=== PATIENT | female | born 1955 | race Caucasian/White ===

== ENCOUNTER 2018-02-27 17:50 | Inpatient (IN) ==
--- NOTE | 2018-02-27 19:08 | ED ---
HPI General Chief Complaint: Recheck/Abnormal Lab/Rx Stated Complaint: abnormal results Time Seen by Provider: 02/27/18 17:59 Source: patient and family Mode of arrival: ambulatory Limitations: no limitations History of Present Illness HPI narrative: Patient is a 62-year-old female presenting to the emergency department after being notified that urine culture resulted in the antibiotics that she is currently on are not susceptible. Pt reports that she has had decreased urinary output today. She is currently on Clindamycin and bactrim ds. She denies any other urinary symptoms. Patient reports that this was initially discovered during preop testing because she has a broken arm that will require surgery. Pt reports discoloration and pain around her ankles that started today. The pain is a 9/10, burning in nature, constant. Pt is O2 dependant, she did not wear oxygen to the emergency department and arrived with low O2 sats. complaint: Reports other (positive urine culture) Initial visit (ago): day(s) Returns today for: called because of abnormal lab/test Symptoms since prior visit: Reports no new symptoms Context: Reports called for abnormal lab result and called for positive culture result Associated symptoms: Reports none Treatments prior to arrival: Reports given antibiotics on Related Data Home Medications Medication Instructions Recorded Confirmed alprazolam [Xanax] 2 mg PO BID 02/13/18 02/27/18 prednisone 5 mg PO BID 02/13/18 02/27/18 albuterol sulfate [Ventolin HFA] 2 puff INHALATION Q4-6H PRN 02/21/18 02/27/18 mbzoxkcgurcn-fcj-sfiv-FA-vit K 1 mg PO DAILY 02/22/18 02/27/18 [Adults Multivitamin] omeprazole magnesium [Prilosec OTC] 20 mg PO DAILY 02/23/18 02/27/18 Previous Rx's Medication Instructions Recorded clindamycin HCl 300 mg PO TID 10 Days #60 cap 02/24/18 sulfamethoxazole-trimethoprim 1 tab PO BID 10 Days #20 tab 02/24/18 [Bactrim DS] Allergies Allergy/AdvReac Type Severity Reaction Status Date / Time ciprofloxacin Allergy Severe Shortness Verified 02/27/18 17:54 of Breath penicillin G Allergy Severe SOB Verified 02/27/18 17:54 Review of Systems ROS: all other systems reviewed are negative [facility] Medical History Medical History COPD (chronic obstructive pulmonary disease) (Acute) GERD (gastroesophageal reflux disease) (Acute) History of CVA (cerebrovascular accident) (Acute) History of MRSA infection (Acute ~01/25/18) History of chemotherapy (Acute) Hx of hepatitis C (Acute) Kidney stones (Acute) Lymphoma (Acute) Right arm pain (Acute) Urinary retention (Acute) Surgical History Surgical History Hx of biopsy (Acute) Hx of cystoscopy (Acute) Hx of tubal ligation (Acute) Previous back surgery (Acute) Social History Social History Substance History: No History of Abuse Second Hand Smoke Exposure: Yes Smoking Status: Current every day smoker Tobacco Type: Cigarettes How Often Do You Have a Drink Containing Alcohol: Never Recent Travel in [facility] within the Last 8 Weeks: No Recent Out of Country Travel within the Last 8 Weeks: No Immunization History Tetanus Immunization: <5 Years Exam Narrative Exam Narrative: GENERAL: Well-developed, well-nourished, alert female. Presenting in no acute distress. SKIN: Focused skin assessment warm/dry. HEAD: Atraumatic. Normocephalic. EYES: Pupils equal and round. No scleral icterus. No injection or drainage. ENT: No nasal bleeding or discharge. Mucous membranes pink and moist. NECK: Trachea midline. No JVD. CARDIOVASCULAR: Regular rate and rhythm. No murmur appreciated. RESPIRATORY: No accessory muscle use. Clear to auscultation. Breath sounds equal bilaterally. GASTROINTESTINAL: Abdomen soft, non-tender, nondistended. Hepatic and splenic margins not palpable. MUSCULOSKELETAL: No obvious deformities. No clubbing. No cyanosis. No edema. Right forearm in splint. NEUROLOGICAL: Awake and alert. No obvious cranial nerve deficits. Motor grossly within normal limits. Normal speech. PSYCHIATRIC: Appropriate mood and affect; insight and judgment normal. Course Initial Documented Vital Signs Temperature 97.7 F 02/27/18 17:53 Pulse Rate 88 02/27/18 17:53 Respiratory Rate 22 18 17:53 Blood Pressure 110/55 L 02/27/18 17:53 Pulse Oximetry 83 L 02/27/18 17:53 Last Documented Vital Signs Temperature 98.2 F 02/28/18 03:43 Pulse Rate 74 02/28/18 03:43 Respiratory Rate 18 02/28/18 03:43 Blood Pressure 115/63 02/28/18 03:43 Pulse Oximetry 94 L 02/28/18 03:43 Medical Decision Making BOGDAN Attestation BOGDAN supervised visit: Yes Attestation: I, Dr. Platt, have reviewed the advance practice practitioner's documentation and am in agreement Discussed with advance practitioner patient has UTI which is resistant to oral medication will need IV medication. MDM Narrative Medical decision making narrative: Pt presented due to positive urine cultures requiring IV abx. Pt's VSS as long as she is on O2, she is supposed to be on this continuously but has been non-compliant. Labs ordered and pending. CBC and chemistry reviewed. Discussed with Dr. Wells infectious disease. She stated that there is no 3rd generation oral cephalosporin to cover pseudomonas. At this time we will repeat a urinalysis/culture and start patient on IV abx. [facility] paged for admit. Repeated UA with reflex culture pending. Dr. Concepcion discussed with Dr. Meeks who accepted admit. Pt was reassessed and c/o pain in the arm with the distal radius and ulna fracture. Pt was givenpercocet 5/325mg PO x 1 dose. Admit orders placed. Medical Screen Exam Complete: Yes Emergency Medical Condition: Yes Differential Diagnosis Differential Diagnosis: UTI versus metabolic normality versus pyelonephritis versus other Medical Records Medical records reviewed: Yes I reviewed the patient's medical records. Patient has positive urine culture, Pseudomonas aeruginosa >100,000. Susceptible to ceftazidime. Lab Data Lab results reviewed: Yes I reviewed the patient's lab results. Result diagrams: 02/27/18 18:55 02/27/18 18:55 Lab Results 02/27/18 02/27/18 02/27/18 Range/Units 18:55 18:55 18:55 WBC 3.2 L (4.0-11.0) th/mm3 RBC 4.36 (4.00-5.30) mil/mm3 Hgb 12.8 (11.6-15.3) gm/dL Hct 38.3 (35.0-46.0) % MCV 88.0 (80.0-100.0) fL MCH 29.4 (27.0-34.0) pg MCHC 33.4 (32.0-36.0) % RDW 14.5 (11.6-17.2) % Plt Count 114 L D (150-450) th/mm3 MPV 7.5 (7.0-11.0) fL Neut % (Auto) 74.7 H (16.0-70.0) % Lymph % (Auto) 17.4 (9.0-44.0) % [place] % (Auto) 5.1 (0.0-8.0) % Eos % (Auto) 2.6 (0.0-4.0) % Baso % (Auto) 0.2 (0.0-2.0) % Neut # (Auto) 2.4 (1.8-7.7) th/mm3 Lymph # (Auto) 0.6 L (1.0-4.8) th/mm3 [place] # (Auto) 0.2 (0.0-0.9) th/mm3 Eos # (Auto) 0.1 (0.0-0.4) th/mm3 Baso # (Auto) 0.0 (0.0-0.2) th/mm3 WBC Differential . Differential Comment Auto diff final PT 11.4 (9.8-11.6) sec INR 1.1 Ratio APTT 29.9 (23.4-31.7) sec Sodium 140 (136-145) meq/L Potassium 4.4 (3.5-5.1) meq/L Chloride 104 (98-107) meq/L Carbon Dioxide 30.6 (21.0-32.0) meq/L Anion Gap 5 (5-15) meq/L BUN 17 (7-18) mg/dL Creatinine 0.77 (0.50-1.00) mg/dL Estimated GFR 76 L (>89) mL/min Random Glucose 131 H (74-106) mg/dL Calcium 8.0 L (8.5-10.1) mg/dL Total Bilirubin 0.3 (0.2-1.0) mg/dL AST 22 (15-37) U/L ALT 20 (10-53) U/L Alkaline Phosphatase 109 (45-117) U/L Total Protein 6.0 L (6.4-8.2) g/dL Albumin 3.4 (3.4-5.0) g/dL Urine Color (Yellw/Straw) Urine Clarity (Clear) Urine pH (5.0-8.5) Ur Specific [place] (1.002-1.035) Urine Protein (Neg-Trace) mg/dL Urine Glucose (UA) (Negative) mg/dL Urine Ketones (Negative) mg/dL Urine Occult Blood (Negative) Urine Nitrate (Negative) Urine Bilirubin (Negative) Urine Urobilinogen (Less than 2) mg/dL Ur Leukocyte Esterase (Negative) Urine RBC (0-3) /hpf Urine WBC (0-5) /hpf Ur Squamous Epith Cells (0-5) /hpf Urine Mucus (Occasional) /lpf Micro UA Comment Ur Microscopic Review Urine Culture Comments 02/27/18 Range/Units 20:44 WBC (4.0-11.0) th/mm3 RBC (4.00-5.30) mil/mm3 Hgb (11.6-15.3) gm/dL Hct (35.0-46.0) % MCV (80.0-100.0) fL MCH (27.0-34.0) pg MCHC (32.0-36.0) % RDW (11.6-17.2) % Plt Count (150-450) th/mm3 MPV (7.0-11.0) fL Neut % (Auto) (16.0-70.0) % Lymph % (Auto) (9.0-44.0) % [place] % (Auto) (0.0-8.0) % Eos % (Auto) (0.0-4.0) % Baso % (Auto) (0.0-2.0) % Neut # (Auto) (1.8-7.7) th/mm3 Lymph # (Auto) (1.0-4.8) th/mm3 [place] # (Auto) (0.0-0.9) th/mm3 Eos # (Auto) (0.0-0.4) th/mm3 Baso # (Auto) (0.0-0.2) th/mm3 WBC Differential Differential Comment PT (9.8-11.6) sec INR Ratio APTT (23.4-31.7) sec Sodium (136-145) meq/L Potassium (3.5-5.1) meq/L Chloride (98-107) meq/L Carbon Dioxide (21.0-32.0) meq/L Anion Gap (5-15) meq/L BUN (7-18) mg/dL Creatinine (0.50-1.00) mg/dL Estimated GFR (>89) mL/min Random Glucose (74-106) mg/dL Calcium (8.5-10.1) mg/dL Total Bilirubin (0.2-1.0) mg/dL AST (15-37) U/L ALT (10-53) U/L Alkaline Phosphatase (45-117) U/L Total Protein (6.4-8.2) g/dL Albumin (3.4-5.0) g/dL Urine Color Yellow (Yellw/Straw) Urine Clarity Clear (Clear) Urine pH 5.0 (5.0-8.5) Ur Specific [place] 1.021 (1.002-1.035) Urine Protein Negative (Neg-Trace) mg/dL Urine Glucose (UA) Negative (Negative) mg/dL Urine Ketones Negative (Negative) mg/dL Urine Occult Blood Negative (Negative) Urine Nitrate Negative (Negative) Urine Bilirubin Negative (Negative) Urine Urobilinogen 4 or greater (Less than 2) mg/dL Ur Leukocyte Esterase Trace H (Negative) Urine RBC Less than 1 (0-3) /hpf Urine WBC 8 H (0-5) /hpf Ur Squamous Epith Cells <1 (0-5) /hpf Urine Mucus Few H (Occasional) /lpf Micro UA Comment Cath-culture ind Ur Microscopic Review Not Reportable Urine Culture Comments Cath-cult indicated Imaging Data Radiologist's impression: Chest X-Ray 02/28/18 00:00 CONCLUSION: The lungs are clear. Discharge Plan Discharge Disposition Patient Disposition: ED Admit(ED Internal Use Only) Discharge Condition Condition: Good Discharge Order Discharge Orders: ED Use Only Admit Order (Routine); Ordered 02/27/18 Ordered By: Lora Schuster Discharge Details Diagnosis: Acute UTI Physicians Team ED Provider: Giacomo López ED Midlevel Provider: Lora Schuster Primary Care Provider: Phillip Wood Attending Provider: Vikas Riggins Other Providers: oJsep Mueller ; Savannah Houston Status ED Status: Left Department Discharge Information Discharge Date/Time: 02/27/18 23:59
[2018-02-27 19:11] LABS: Baso % (Auto) 0.2 % (0.0-2.0); Eos # (Auto) 0.1 th/mm3 (0.0-0.4); Eos % (Auto) 2.6 % (0.0-4.0); Hematocrit 38.3 % (35.0-46.0); Hemoglobin 12.8 gm/dL (11.6-15.3); Lymph # (Auto) 0.6 th/mm3 (1.0-4.8); Lymph % (Auto) 17.4 % (9.0-44.0); Mean Corpuscular HGB Conc 33.4 % (32.0-36.0); Mean Corpuscular Hemoglobin 29.4 pg (27.0-34.0); Mean Platelet Volume 7.5 fL (7.0-11.0); Mono # (Auto) 0.2 th/mm3 (0.0-0.9); Mono % (Auto) 5.1 % (0.0-8.0); Neut # (Auto) 2.4 th/mm3 (1.8-7.7); Neut % (Auto) 74.7 % (16.0-70.0); Platelet Count 114 th/mm3 (150-450); Red Blood Count 4.36 mil/mm3 (4.00-5.30); Red Cell Distribution Width 14.5 % (11.6-17.2); White Blood Count 3.2 th/mm3 (4.0-11.0)
[2018-02-27 19:25] LABS: Activated Partial Thrombo Time 29.9 sec (23.4-31.7); INR 1.1 Ratio; Prothrombin Time 11.4 sec (9.8-11.6)
[2018-02-27 19:28] LABS: Albumin 3.4 g/dL (3.4-5.0); Anion Gap 5 meq/L (5-15); Aspartate Aminotransferase 22 U/L (15-37); Blood Urea Nitrogen 17 mg/dL (7-18); Carbon Dioxide 30.6 meq/L (21.0-32.0); Chloride 104 meq/L (98-107); Glomerular Filtration Rate 76 mL/min (>89); Glucose,Random 131 mg/dL (74-106); Potassium 4.4 meq/L (3.5-5.1); Sodium 140 meq/L (136-145)
[2018-02-27 19:29] LABS: Alanine Aminotransferase 20 U/L (10-53)
[2018-02-27 19:32] LABS: Alkaline Phosphatase 109 U/L (45-117)
[2018-02-27] MEDS ORDERED: MethylPREDNISolone Sod Succinate Inj 125 MG/2 ML Vial IV.PUSH ONE (20:28)
[2018-02-27] MEDS ORDERED: Tobramycin Consult Pharmacy OTHER PRN (21:01)
[2018-02-27] MEDS ORDERED: Bisacodyl 10 MG Supp RECTAL PRN (21:12)
[2018-02-27] MEDS ORDERED: Acetaminophen 325 MG Tablet PO PRN (21:12)
--- NOTE | 2018-02-27 21:14 | P.HPIM ---
History of Present Illness Primary Care Physician: Phillip Wood DO History of Present Illness: This is a 62-year-old female with a PMH of Narcolepsy, Lymphoma, COPD, O2 Dependent, Urinary Retention, Tobacco Abuse and recent Right Wrist Fracture who was called to come back to the ER for urine culture results from previous ER presentation. Pt w/ h/o urinary retention, s/p Clark placement and eval w/ Dr. Birch in the past, seen in ER on 01/25/18, urine cultures +MRSA UTI at that time, later seen in ER on 02/13/18 for Right Wrist Fx after falling out of bed, had splint placed and was referred to Dr. Marin for surgical intervention which is scheduled for this coming Wednesday. Presented to ER on 02/23/18, diagnosed w/ UTI and d/c'd home on Clinda/Bactrim. Was called by us today and told to come in to ER for +Pseudomonas from urine cultures 02/24/18. Pt does c/ o ongoing dysuria. Friend at bedside notes pt w/ Narcolepsy-at baseline, does fall asleep during exam. On arrival, BP 110/55, HR 88, O2 sat 83% on RA, Afebrile. CBC essentially at baseline. INR 1.1. Chemistry unremarkable. UA with trace LE, mild bacteriuria. S/p Rocephin in ER. - Diagnosis (1) UTI (urinary tract infection) (2) COPD (chronic obstructive pulmonary disease) (3) Hypoxia (4) Narcolepsy (5) Wrist fracture, right Review of Systems PAST FAMILY HISTORY: Reviewed. No h/o DM or CAD All other systems reviewed negative except as stated in HPI PMFSH - History History Provided By: Patient - Medical History Medical History: Medical History (Last Reviewed 02/27/18 @ 19:11 by KAVIN Floyd) COPD (chronic obstructive pulmonary disease) GERD (gastroesophageal reflux disease) History of CVA (cerebrovascular accident) History of MRSA infection Onset Date: ~01/25/18 History of chemotherapy Hx of hepatitis C Kidney stones Lymphoma Right arm pain Urinary retention - Surgical History Surgical History: Surgical History (Last Reviewed 02/27/18 @ 19:11 by KAVIN Floyd) Hx of biopsy Hx of cystoscopy Hx of tubal ligation Previous back surgery - Tobacco History Second Hand Smoke Exposure: Yes Tobacco Use In Past 30 Days: Yes Smoking Status: Current every day smoker Tobacco Type: Cigarettes - Alcohol History How Often Do You Have a Drink Containing Alcohol: Never - Substance Use History Substance History: No History of Abuse - Travel History Recent Travel in the [place] Within the Last 8 Weeks: No Recent Travel Out of the Country Within the Last 8 Weeks: No - Immunization History Tetanus Immunization: <5 Years Medications and Allergies Active Medications: Active Medications Acetaminophen (Tylenol) 650 mg PO Q4H PRN PRN Reason: Temp > 100.4 Al Hydroxide/Mg Hydroxide (Milk Of Magnesia Liq) 30 ml PO Q12H PRN PRN Reason: Mild Constipation Albuterol (Duoneb Neb (Prn)) 1 ampul NEB Q4HR NEB PRN PRN Reason: SOB/WHEEZING Bisacodyl (Dulcolax Supp) 10 mg RECTAL DAILY PRN PRN Reason: SEVERE CONSITIPATION Tobramycin Sulfate / Sodium (Chloride) 100 mls @ 100 mls/hr IV.SIG Q24H ADAIR Lactulose (Lactulose Liq) 30 ml PO DAILY PRN PRN Reason: SEVERE CONSITIPATION Methylprednisolone Sodium Succinate (Solumedrol Inj) 40 mg IV.PUSH Q6H ADAIR Non-Formulary Medication (Alprazolam [Xanax]) 2 mg PO BID ADAIR Non-Formulary Medication (Ofiortbvtqos-Quw-Smhr-Fa-Vit K [Adults Multivitamin]) 1 mg PO DAILY ADAIR Non-Formulary Medication (Omeprazole Magnesium [Prilosec Otc]) 20 mg PO DAILY ADAIR Ondansetron HCl (Zofran Inj) 4 mg IV.PUSH Q6H PRN PRN Reason: NAUSEA OR VOMITING Pharmacy Profile Note (Tobramycin Consult Pharmacy) 1 each OTHER UNSCH PRN PRN Reason: Pharmacy to dose Senna/Docusate Sodium (Alma-Colace) 1 tab PO BID ADAIR Sennosides (Senokot) 17.2 mg PO Q12H PRN PRN Reason: Moderate Constipation Sodium Chloride (Ns Flush) 2 ml IV.FLUSH PRN PRN PRN Reason: FLUSH AFTER USING IV ACCESS Last Admin: 02/27/18 18:52 Dose: 2 ml Sodium Chloride (Ns Flush) 2 ml IV.FLUSH BID ADAIR Sodium Chloride (Ns Flush) 2 ml IV.FLUSH PRN PRN PRN Reason: FLUSH AFTER USING IV ACCESS Allergies Allergy/AdvReac Type Severity Reaction Status Date / Time ciprofloxacin Allergy Severe Shortness Verified 02/27/18 17:54 of Breath penicillin G Allergy Severe SOB Verified 02/27/18 17:54 Home Medications Medication Instructions Recorded Confirmed Type alprazolam [Xanax] 2 mg PO BID 02/13/18 02/27/18 History prednisone 5 mg PO BID 02/13/18 02/27/18 History albuterol sulfate [Ventolin HFA] 2 puff INHALATION Q4-6H PRN 02/21/18 02/27/18 History mvdjghkhagsk-zps-dhhu-FA-vit K 1 mg PO DAILY 02/22/18 02/27/18 History [Adults Multivitamin] omeprazole magnesium [Prilosec OTC] 20 mg PO DAILY 02/23/18 02/27/18 History Exam Vital signs: Vital Signs 02/27/18 17:53 02/27/18 17:54 02/27/18 18:15 Temperature 97.7 F Pulse Rate 88 77 Respiratory Rate 22 20 Blood Pressure 110/55 L 134/80 Pulse Oximetry 83 L 93 L 94 L Intake & Output 02/27/18 02/27/18 02/28/18 06:59 18:59 06:59 Intake Total 100 / 100 Balance 100 / 100 Weight 59.874 kg Intake: IV 100 / 100 Rocephin Inj 1,000 MG In NS Inj 100 / 100 100 ML @ 200 mls/hr IV.SIG ONCE ONE Rx#:[id number] Narrative: PE: GENERAL: Thin, chronically ill appearing, cachectic middle-aged female in no acute distress. Falls asleep during exam. Smells strongly of tobacco. Friend at baseline. SKIN: Focused skin assessment warm and dry. HEENT: PERRLA, EOMI. No scleral icterus or conjunctival pallor. No lid lag or facial droop. CARDIOVASCULAR: Regular rate and rhythm. No obvious murmurs to auscultation. No chest tenderness to palpation. RESPIRATORY: No obvious rhonchi or wheezing. Clear to auscultation. Breath sounds equal bilaterally. GASTROINTESTINAL: Abdomen soft, non-tender, nondistended. BS normal. MUSCULOSKELETAL: Extremities without clubbing, cyanosis, or edema. No obvious deformities. Right wrist splint. NEUROLOGICAL: Awake, alert and oriented x4. No focal neurologic deficits. Moving both upper and lower extremities spontaneously. PSYCHIATRIC: Appropriate mood and affect. Insight and judgment normal. Results - Labs CBC & Chem 7: 02/27/18 18:55 02/27/18 18:55 Labs: Short CBC 02/27/18 Range/Units 18:55 WBC 3.2 L (4.0-11.0) th/mm3 Hgb 12.8 (11.6-15.3) gm/dL Hct 38.3 (35.0-46.0) % Plt Count 114 L D (150-450) th/mm3 BMP 02/27/18 18:55 Sodium 140 Potassium 4.4 Chloride 104 Carbon Dioxide 30.6 BUN 17 Creatinine 0.77 Calcium 8.0 L Liver Function 02/27/18 Range/Units 18:55 Total Bilirubin 0.3 (0.2-1.0) mg/dL AST 22 (15-37) U/L ALT 20 (10-53) U/L Alkaline Phosphatase 109 (45-117) U/L Albumin 3.4 (3.4-5.0) g/dL Caprini VTE Risk Assessment Caprini VTE Risk Assessment: No/Low Risk (score <= 1) Caprini Risk Assessment Model: Point Value = 1 Point Value = 2 Point Value = 3 Point Value = 5 Age 41-60 Minor surgery BMI > 25 kg/m2 Swollen legs Varicose veins or History of unexplained or recurrent spontaneous Oral contraceptives or hormone replacement Sepsis (< 1 month) Serious lung disease, including pneumonia (< 1 month) Abnormal pulmonary function Acute myocardial infarction Congestive heart failure (< 1 month) History of inflammatory bowel disease Medical patient at bed rest Age 61-74 Arthroscopic surgery Major open surgery (> 45 min) Laparoscopic surgery (> 45 min) Malignancy Confined to bed (> 72 hours) Immobilizing plaster cast Central venous access Age >= 75 History of VTE Family history of VTE Factor V Leiden Prothrombin [id number] Lupus anticoagulant Anticardiolipin antibodies Elevated serum homocysteine Heparin-induced thrombocytopenia Other congenital or acquired thrombophilia Stroke (< 1 month) Elective arthroplasty Hip, pelvis, or leg fracture Acute spinal cord injury (< 1 month) Prophylaxis Regimen: Total Risk Factor Score Risk Level Prophylaxis Regimen 0-1 Low Early ambulation 2 Moderate Order ONE of the following: *Sequential Compression Device (SCD) *Heparin 5000 units SQ BID 3-4 Higher Order ONE of the following medications: *Heparin 5000 units SQ TID *Enoxaparin/Lovenox 40 mg SQ daily (WT < 150 kg, CrCl > 30 mL/min) *Enoxaparin/Lovenox 30 mg SQ daily (WT < 150 kg, CrCl > 10-29 mL/min) *Enoxaparin/Lovenox 30 mg SQ BID (WT < 150 kg, CrCl > 30 mL/min) AND/OR *Sequential Compression Device (SCD) 5 or more Highest Order ONE of the following medications: *Heparin 5000 units SQ TID (Preferred with Epidurals) *Enoxaparin/Lovenox 40 mg SQ daily (WT < 150 kg, CrCl > 30 mL/min) *Enoxaparin/Lovenox 30 mg SQ daily (WT < 150 kg, CrCl > 10-29 mL/min) *Enoxaparin/Lovenox 30 mg SQ BID (WT < 150 kg, CrCl > 30 mL/min) AND *Sequential Compression Device (SCD) Assessment and Plan - Assessment (1) UTI (urinary tract infection) Code(s): N39.0 - Urinary tract infection, site not specified Status: Acute (2) COPD (chronic obstructive pulmonary disease) Code(s): J44.9 - Chronic obstructive pulmonary disease, unspecified Status: Acute (3) Hypoxia Code(s): R09.02 - Hypoxemia Status: Acute (4) Narcolepsy Code(s): G47.419 - Narcolepsy without cataplexy Status: Acute (5) Wrist fracture, right Code(s): S62.101A - Fracture of unspecified carpal bone, right wrist, initial encounter for closed fracture Status: Acute - Plan A/P: 1. UTI: h/o MRSA UTI 01/25/18, urine culture 02/24/18 +Pseudomonas, s/p Rocephin IV in ER. Susceptibilities/JUANY reviewed, will switch to Primaxin and Tobra for double coverage of Pseudomonas in light of h/o recurrent/resistant UTIs. Consult ID for further recommendations regarding antibiotic regimen 2. Right Wrist Fx: follows w/ Dr. Houston, s/p fx 01/25/18, currently in splint, schedule for surgery on Wednesday, however will likely need to postpone due to active infection. Will consult for further eval. Check CXR to eval for underlying PNA. 3. COPD: Chronic Respiratory Failure w/ Acute Exacerbation, DuoNeb, Solu- Medrol, Symbicort, Mucinex. 4. Hypoxia: O2 Dependent, O2 sat 83% on RA upon arrival, monitor O2, continue NC. 5. Narcolepsy: at baseline, hold Xanax for tonight, monitor O2. 6. Tobacco Abuse: Pt counselled. NicoDerm prn. 7. DVT Prophylaxis: SCD/Teds 8. Social work for d/c planning as needed. 9. Case discussed w/ ER physician at length, labs/records/imaging reviewed by me.
[2018-02-27 21:16] LABS: Bilirubin,Urine Negative (Negative); Clarity,Urine Clear (Clear); Color,Urine Yellow (Yellw/Straw); Glucose,Urine (UA) Negative (Negative); Leukocyte Esterase,Urine Trace (Negative); Mucus,Urine Few /lpf (Occasional); Nitrite,Urine Negative (Negative); Specific Gravity,Urine 1.021 (1.002-1.035); Squamous Epithelial Cell,Urine <1 /hpf (0-5); Urobilinogen,Urine 4 or Greater mg/dL (Less than 2)
[2018-02-27] MEDS ORDERED: TOBRAMYCIN IV.SIG SCH ×2 (22:00)
[2018-02-27] MEDS ORDERED: Gentamicin Consult Pharmacy 1 EACH OTHER SCH (22:00)
[2018-02-27] MEDS ORDERED: SODIUM CHLOR 0.9% IV.SIG SCH ×2 (22:00)
[2018-02-28] MEDS ORDERED: TOBRAMYCIN IV.SIG SCH ×2
[2018-02-28] MEDS ORDERED: Gentamicin Inj 300 MG in Sodium Chlor 0.9% Inj 100 ML IV.SIG SCH ×2
[2018-02-28] MEDS ORDERED: SODIUM CHLOR 0.9% IV.SIG SCH ×2
--- NOTE | 2018-02-28 01:31 | XR ---
EXAM DATE: 02/28/2018 12:52 AM EST AGE/SEX: 62 years / Female INDICATIONS: Shortness of breath. CLINICAL DATA: This is the patient's initial encounter. Patient reports that signs and symptoms have been present for 1 day and indicates a pain score of 0/10. MEDICAL/SURGICAL HISTORY: Chronic obstructive pulmonary disease. Renal calculi. Lymphoma. Non e. COMPARISON: [facility] – [place], CHEST 1V SINGLE AP, 02/24/2018. . FINDINGS: Mild patient rotation towards the right. A single AP view of the chest demonstrates the lungs to be symmetrically aerated without evidence of mass, infiltrate or effusion. The cardiomediastinal contours are unremarkable. Mild curvature of the thoracolumbar spine convex towards the left. CONCLUSION: The lungs are clear. Electronically signed by: Kt Chaudhari MD Board Certified Radiologist 02/28/2018 1:30 AM EST
[2018-02-28] MEDS: MethylPREDNISolone Sod Succinate Inj 40 MG/ML Vial IV.PUSH SCH ×2 (03:01→09:30)
[2018-02-28 06:04] LABS: Hematocrit 41.5 % (35.0-46.0); Hemoglobin 13.5 gm/dL (11.6-15.3); Mean Corpuscular HGB Conc 32.6 % (32.0-36.0); Mean Corpuscular Hemoglobin 29.1 pg (27.0-34.0); Mean Corpuscular Volume 89.2 fL (80.0-100.0); Mean Platelet Volume 7.7 fL (7.0-11.0); Platelet Count 103 th/mm3 (150-450); Red Blood Count 4.65 mil/mm3 (4.00-5.30); Red Cell Distribution Width 14.5 % (11.6-17.2); White Blood Count 2.4 th/mm3 (4.0-11.0)
[2018-02-28 06:24] LABS: Alanine Aminotransferase 18 U/L (10-53); Alkaline Phosphatase 104 U/L (45-117)
[2018-02-28 06:27] LABS: Albumin 3.2 g/dL (3.4-5.0); Anion Gap 5 meq/L (5-15); Aspartate Aminotransferase 22 U/L (15-37); Blood Urea Nitrogen 14 mg/dL (7-18); Calcium 8.1 mg/dL (8.5-10.1); Carbon Dioxide 29.4 meq/L (21.0-32.0); Chloride 105 meq/L (98-107); Glomerular Filtration Rate Greater Than 89 mL/min (>89); Glucose,Random 131 mg/dL (74-106); Potassium 4.6 meq/L (3.5-5.1); Sodium 139 meq/L (136-145)
[2018-02-28 08:21] LABS: Lymphocytes 13 % (9-44); Monocytes 1 % (0-8); Ovalocytes 1+; Platelet Morphology Normal (Normal)
[2018-02-28] MEDS ORDERED: Pharmacy Ordered Lab Info OTHER ONE (09:00)
--- NOTE | 2018-02-28 09:01 | P.PNIM ---
Subjective Interval history: overnight felt feverish with occasional chills at times felt nausea overnight but no emesis + back pain endorsed last few days no foul smelling urine, + urinary frequency, no burning with urination endorsed. + rash on legs Physical Exam Vital signs: Last Vital Signs Temp 97.9 F 02/28/18 08:19 Pulse 66 02/28/18 08:19 Resp 17 02/28/18 08:19 BP 104/55 L 02/28/18 08:19 Pulse Ox 94 L 02/28/18 08:19 Intake & Output 02/26/18 02/27/18 02/28/18 03/01/18 06:59 06:59 06:59 06:59 Intake Total 407.5 / 407.5 Balance 407.5 / 407.5 Weight 56 kg gen: nad heent: eomi cvs: s1/s2 resp: CTA bilaterally gi: soft, non tender, non dsitended, no guarding urology: NOO CVA tenderness, no suprapubic tenderness skin: bilateral leg petechiae on legs ( present a little less than 1 week) ext: no edema, no calf tenderness Urinary Catheter Management Straight: Cath placed during this visit: no Results Labs CBC & Chem 7: 02/28/18 04:58 02/28/18 04:58 Imaging Imaging: Impressions Chest X-Ray 02/28/18 00:00 CONCLUSION: The lungs are clear. Assessment and Plan (1) UTI (urinary tract infection): Code(s): N39.0 - Urinary tract infection, site not specified Status: Acute (2) COPD (chronic obstructive pulmonary disease): Code(s): J44.9 - Chronic obstructive pulmonary disease, unspecified Status: Acute (3) Hypoxia: Code(s): R09.02 - Hypoxemia Status: Acute (4) Narcolepsy: Code(s): G47.419 - Narcolepsy without cataplexy Status: Acute (5) Wrist fracture, right: Code(s): S62.101A - Fracture of unspecified carpal bone, right wrist, initial encounter for closed fracture Status: Acute (6) Thrombocytopenia: Code(s): D69.6 - Thrombocytopenia, unspecified Status: Acute Plan Patient is a pleasant 62-year-old female with past medical history of reflux disease, and MRSA urinary tract infection (01/30) presenting to emergency department for positive urine culture with Pseudomonas Infectious disease: Pseudomonal urinary tract infection Infectious disease consulted recommendations appreciated via EMR Discontinue tobramycin and continue patient on imipenem Follow-up repeat urinary culture Tylenol PRN fever IV fluid hydration in the setting of sepsis resuscitation Hematology: Thrombocytopenia/leukopenia Suspect that these may be underlying infection with possible component of bone marrow suppression from Bactrim antibiotic. Discontinue antibiotic Bactrim and continue to monitor. Orthopedics: History right wrist fracture Orthopedics consulted and recommendations to be appreciated. At this time patient will not be having corrective surgery on right wrist fracture Pulmonary: COPD Patient does not appear to have change in symptoms from baseline. Will discontinue IV Solu-Medrol and resume patient's normal prednisone. DuoNeb therapy as needed Symbicort Supplemental oxygen with goal saturation 88-92% CODE STATUS: Full code DVT prophylaxis Disposition: Medical surgery unit Progress Note: Quality VTE Deep Vein Thrombosis/Pulmonary Embolism Present on Admission: No _ (1) UTI (urinary tract infection) Qualifiers: Encounter type: Hematuria presence: Indwelling urinary catheter type: Urinary tract infection type: (2) Narcolepsy Qualifiers: Narcolepsy type: (3) Wrist fracture, right Qualifiers: Encounter type: Fracture healing: Fracture type: (4) COPD (chronic obstructive pulmonary disease) Qualifiers: COPD type: Chronic bronchitis type: Emphysema type:
[2018-02-28] MEDS: Pantoprazole Sodium 20 MG DR Tablet PO SCH (09:30)
[2018-02-28] MEDS: Senna/Docusate Sodium 8.6/50 MG Tablet PO SCH ×2 (09:30→23:00)
[2018-02-28] MEDS: Multivitamin Hematinic Therapeutic Tablet PO SCH (09:31)
--- NOTE | 2018-02-28 12:49 | MB ---
cc: Josep Mueller MD DATE: 02/28/2018 REQUESTING PHYSICIAN: Dr. Dorothy Meeks. REASON: Pseudomonas urinary tract infection. HISTORY OF PRESENT ILLNESS: This is a 62-year-old white female who was seen in the emergency department on a recent visit on 02/23/2018. The patient had a urine culture taken on 02/26/2018 and she was discharged home. She was called back when the urine culture came back showing infection with Pseudomonas aeruginosa. She had been seen in the emergency department for medical clearance for right wrist surgery. The patient had fallen and sustained right wrist fracture. She had a prior urine infection with MRSA on 01/27/2018. The patient was called to come back to the emergency department for evaluation and treatment for the UTI. The Pseudomonas is resistant to ciprofloxacin. She was started on IV imipenem and tobramycin. The patient has no fever. Currently, she has no significant complaints. She tells me that her urine had a foul smell, but besides that she has not had any burning on urination. Her white blood cell count is 2.4 today, and the platelet count is low. On review of prior lab work her white count has been low and platelet count has been low. The patient was discharged home on clindamycin and Bactrim before she was called in to come back to the emergency department. PAST MEDICAL HISTORY: Narcolepsy, COPD, history of CVA, gastroesophageal reflux disease, lymphoma, history of chemotherapy kidney stones, hepatitis C, right arm fracture, tubal ligation, urinary retention. ALLERGIES: PENICILLIN AND CIPROFLOXACIN. MEDICATIONS: 1. Imipenem. 2. Xanax. 3. Methylprednisolone. 4. Protonix. 5. Alma-Colace. 6. Tobramycin. SOCIAL HISTORY: The patient smokes a pack of cigarettes a day. Denies alcohol. Denies illicit drugs. FAMILY HISTORY: Noncontributory. REVIEW OF SYSTEMS: All systems have been reviewed. Pertinent's mentioned in history of present illness. All systems have been reviewed and are negative. PHYSICAL EXAMINATION: GENERAL: This is a frail, thin female in no acute distress. She is awake and alert and oriented. VITAL SIGNS: Temperature 97.6, BP 105/54, respirations 18, heart rate 83. HEENT: Head is atraumatic. Extraocular muscles grossly intact. Pupils reactive to light. No icterus. Oropharynx moist mucosa without lesions. NECK: Supple without adenopathy. LUNGS: Slight rhonchi at both bases. Decreased breath sounds throughout. HEART: Regular S1 and S2. ABDOMEN: Bowel sounds present, flat. Soft, nontender. RECTAL: Not performed. ABDOMEN: Bowel sounds present. Soft, nontender. EXTREMITIES: No clubbing or cyanosis or edema. SKIN: No rash. NEUROLOGIC: No gross focal findings. PSYCHIATRIC: The patient is calm and cooperative. LABORATORY DATA: WBC 2.4, platelet count 103, hemoglobin 13.5, 84% neutrophils. Creatinine 0.58. Estimated GFR greater than 89, sodium 139. IMPRESSION: Urinary tract infection due to Pseudomonas aeruginosa. Repeat urine culture pending. RECOMMENDATIONS: 1. Continue imipenem. 2. Discontinue tobramycin. 3. Monitor repeat urine culture. Continue antibiotic treatment until resolution of the urine infection. Thank you for this consultation. I will monitor the patient's progress. MD MARTIN Carlson/mario alberto , 11:52 AM , 12:04 PM
[2018-03-01 07:15] LABS: Hepatitis A IgM Antibody Nonreactive (Nonreactive); Hepatitits B Surface Antigen Nonreactive (Nonreactive)
[2018-03-01] MEDS: Multivitamin Hematinic Therapeutic Tablet PO SCH (08:27)
[2018-03-01] MEDS: predniSONE 5 MG Tablet PO SCH (08:28)
[2018-03-01] MEDS: Pantoprazole Sodium 20 MG DR Tablet PO SCH (08:28)
[2018-03-01] MEDS: Senna/Docusate Sodium 8.6/50 MG Tablet PO SCH ×2 (08:33→21:50)
--- NOTE | 2018-03-01 14:04 | P.PNID ---
Subjective Remarks: Patient feels okay. No complaints. No fever But she felt a little chilly earlier. Repeat urine culture has no growth. 62-year-old white female who was seen in the emergency department on a recent visit on 02/23/2018. The patient had a urine culture taken on 02/26/2018 and she was discharged home. She was called back when the urine culture came back showing infection with Pseudomonas aeruginosa. She had been seen in the emergency department for medical clearance for right wrist surgery. The patient had fallen and sustained right wrist fracture. She had a prior urine infection with MRSA on 01/27/2018. The patient was called to come back to the emergency department for evaluation and treatment for the UTI. The Pseudomonas is resistant to ciprofloxacin. She was started on IV imipenem and tobramycin. Past Medical History: PAST MEDICAL HISTORY: Narcolepsy, COPD, history of CVA, gastroesophageal reflux disease, lymphoma, history of chemotherapy kidney stones, hepatitis C, right arm fracture, tubal ligation, urinary retention. Allergies/Adverse Reactions: Allergies ciprofloxacin Allergy (Severe, Verified 02/27/18 17:54) Shortness of Breath penicillin G Allergy (Severe, Verified 02/27/18 17:54) SOB Objective Vital Signs 02/28/18 16:08 02/28/18 17:04 02/28/18 19:50 Temperature 98.1 F Pulse Rate 92 H Respiratory Rate 18 20 18 Blood Pressure 114/60 Pulse Oximetry 97 02/28/18 20:00 03/01/18 00:00 03/01/18 03:52 Temperature 98.0 F 97.6 F 98.1 F Pulse Rate 73 87 77 Respiratory Rate 18 18 19 Blood Pressure 110/55 L 115/66 101/63 Pulse Oximetry 93 L 93 L 93 L 03/01/18 07:36 03/01/18 11:09 Temperature 97.7 F 97.4 F L Pulse Rate 80 91 H Respiratory Rate 16 16 Blood Pressure 121/68 114/65 Pulse Oximetry 96 91 L Intake & Output 02/28/18 03/01/18 03/01/18 18:59 06:59 18:59 Intake Total 200 / 200 300 / 300 100 / 100 Balance 200 / 200 300 / 300 100 / 100 Intake: IV 200 / 200 300 / 300 100 / 100 Ofirmev Inj 1,000 mg In 100 ml 100 / 100 @ 400 mls/hr IV.SIG ONCE ONE Rx #:[id number] Primaxin Inj 500 MG In NS Inj 200 / 200 200 / 200 100 / 100 100 ML @ 200 mls/hr IV.SIG Q6H [facility] Rx#:[id number] Other: # Voids 2 Date of Last Bowel Movement 02/28/18 03/01/18 02/27/18 20:44 Catheterized Urine Urine Culture - Final No growth in 48 hours Lab - Hematology Results 02/27/18 02/28/18 18:55 04:58 WBC 3.2 L 2.4 L RBC 4.36 4.65 Hgb 12.8 13.5 Hct 38.3 41.5 MCV 88.0 89.2 MCH 29.4 29.1 MCHC 33.4 32.6 RDW 14.5 14.5 Plt Count 114 L D 103 L MPV 7.5 7.7 Prelim Diff (Auto) Manual diff required Neut % (Auto) 74.7 H Lymph % (Auto) 17.4 [place] % (Auto) 5.1 Eos % (Auto) 2.6 Baso % (Auto) 0.2 Neut # (Auto) 2.4 Lymph # (Auto) 0.6 L [place] # (Auto) 0.2 Eos # (Auto) 0.1 Baso # (Auto) 0.0 WBC Differential . Manual diff final Seg Neuts % (Manual) 84 H Band Neuts % (Manual) 2 Lymphocytes % (Manual) 13 Monocytes % (Manual) 1 Abs Neuts (Manual) 2.1 Differential Comment Auto diff final . Platelet Estimate Low L Platelet Morphology Normal Ovalocytes 1+ H Lab - Chemistry Results 02/27/18 02/28/18 03/01/18 18:55 04:58 04:44 Sodium 140 139 Potassium 4.4 4.6 Chloride 104 105 Carbon Dioxide 30.6 29.4 Anion Gap 5 5 BUN 17 14 Creatinine 0.77 0.58 0.69 Estimated GFR 76 L Greater than 89 86 L Random Glucose 131 H 131 H Calcium 8.0 L 8.1 L Total Bilirubin 0.3 0.3 AST 22 22 ALT 20 18 Alkaline Phosphatase 109 104 Total Protein 6.0 L 6.0 L Albumin 3.4 3.2 L Imaging: ITS Impressions Chest X-Ray 02/28/18 00:00 CONCLUSION: The lungs are clear. Physical Exam: GENERAL: No acute distress. She is awake and alert and oriented. HEENT: Head is atraumatic. Extraocular muscles grossly intact. Pupils reactive to light. No icterus. Oropharynx:moist mucosa without lesions. NECK: Supple without adenopathy. LUNGS: Slight rhonchi at both bases. Lateral wheezing. HEART: Regular S1 and S2. ABDOMEN: Bowel sounds present. Soft, nontender. EXTREMITIES: No clubbing or cyanosis or edema. SKIN: No rash. NEUROLOGIC: No gross focal findings. PSYCHIATRIC: Calm and cooperative. Assessment and Plan - Plan IMPRESSION: Urinary tract infection due to Pseudomonas aeruginosa. Repeat urine is negative. RECOMMENDATIONS: Stop antibiotics. Okay to discharge from ID standpoint. I will sign off now.
--- NOTE | 2018-03-01 17:42 | P.PNIM ---
Subjective Interval history: 62-year-old female with oxygen dependent COPD admitted with drug resistant UTI for IV antibiotics Patient seen and examined, complaining of severe pain in left wrist, and some worsening shortness of breath, denies cough, denies chest pain no nausea vomiting Physical Exam Vital signs: Last Vital Signs Temp 97.2 F L 03/01/18 14:16 Pulse 84 03/01/18 14:16 Resp 16 03/01/18 14:16 BP 135/83 03/01/18 14:16 Pulse Ox 96 03/01/18 14:16 Intake & Output 02/27/18 02/28/18 03/01/18 03/02/18 06:59 06:59 06:59 06:59 Intake Total 407.5 / 407.5 500 / 500 100 / 100 Balance 407.5 / 407.5 500 / 500 100 / 100 Weight 56 kg 140.3 kg Thin, frail appearing 62-year-old white female Kyphotic, awake alert no acute distress Heart S1-S2 regular Lungs diminished air movement tight, wheeze no rales no rhonchi Abdomen soft nondistended positive bowel sounds Extremities left wrist positive edema in splint no lower extremity edema Urinary Catheter Management Straight: Cath placed during this visit: no Results Labs CBC & Chem 7: 02/28/18 04:58 03/01/18 04:44 Labs: Microbiology 02/27/18 20:44 Catheterized Urine Urine Culture - Final No growth in 48 hours Assessment and Plan (1) UTI (urinary tract infection): Code(s): N39.0 - Urinary tract infection, site not specified Status: Acute (2) COPD (chronic obstructive pulmonary disease): Code(s): J44.9 - Chronic obstructive pulmonary disease, unspecified Status: Acute (3) Hypoxia: Code(s): R09.02 - Hypoxemia Status: Acute (4) Narcolepsy: Code(s): G47.419 - Narcolepsy without cataplexy Status: Acute (5) Wrist fracture, right: Code(s): S62.101A - Fracture of unspecified carpal bone, right wrist, initial encounter for closed fracture Status: Acute (6) Thrombocytopenia: Code(s): D69.6 - Thrombocytopenia, unspecified Status: Acute Plan UTI due to resistant pseudomonas requiring iv antibiotics - repeat cx are now negative and ok to stop abx per ID ACUTE EXACERBATION OF COPD - steroids, pulm tx. CHRONIC HYPOXIC RESPIRATORY FAILURE - cont pulm tx, THROMBOCYTOPENIA/LEUKOPENIA - outpatient followup HEPATITIS C - will need outpatient followup with GI R WRIST FRACTURE w uncontrolled pain - prob pathologic component due to osteoporosis patient is on chronic prednisone, will need outpt follow up bone density start ca w vit d ANXIETY - on xanax GERD - on ppi dvt prophylaxis -scd dispo - home tomorrow if clinically stable Progress Note: Quality VTE Deep Vein Thrombosis/Pulmonary Embolism Present on Admission: No _ (1) UTI (urinary tract infection) Qualifiers: Urinary tract infection type: Hematuria presence: Indwelling urinary catheter type: Encounter type: (2) COPD (chronic obstructive pulmonary disease) Qualifiers: COPD type: Chronic bronchitis type: Emphysema type: (3) Narcolepsy Qualifiers: Narcolepsy type: (4) Wrist fracture, right Qualifiers: Encounter type: Fracture type: Fracture healing:
[2018-03-01] MEDS ORDERED: MethylPREDNISolone Sod Succinate Inj 40 MG/ML Vial IV.PUSH ONE (19:00)
[2018-03-01] MEDS ORDERED: Tiotropium Bromide 18 MCG/ACT Inhaler INH ONE (19:00)
[2018-03-01] MEDS ORDERED: Ketorolac Inj 30 MG/ML (IVP) Vial IV.PUSH ONE (19:00)
[2018-03-01] MEDS ORDERED: Budesonide-Formoterol 80/4.5 MCG 6.9 GM Inhaler INH SCH (21:00)
[2018-03-02 07:39] LABS: Glomerular Filtration Rate Greater Than 89 mL/min (>89)
[2018-03-02] MEDS: Pantoprazole Sodium 20 MG DR Tablet PO SCH (08:43)
[2018-03-02] MEDS: Multivitamin Hematinic Therapeutic Tablet PO SCH (08:43)
[2018-03-02] MEDS: predniSONE 5 MG Tablet PO SCH (08:43)
[2018-03-02] MEDS: Senna/Docusate Sodium 8.6/50 MG Tablet PO SCH (08:45)
--- NOTE | 2018-03-02 09:45 | P.PNIM ---
Subjective Interval history: f/u; UTI in no acute distress. has some pain to the right arm. no fever. no other complaints. Physical Exam Vital signs: Last Vital Signs Temp 97.5 F L 03/02/18 08:00 Pulse 90 03/02/18 08:00 Resp 17 03/02/18 08:00 BP 126/71 03/02/18 08:00 Pulse Ox 94 L 03/02/18 08:00 Intake & Output 02/28/18 03/01/18 03/02/18 03/03/18 06:59 06:59 06:59 06:59 Intake Total 407.5 / 407.5 500 / 500 310 / 310 Balance 407.5 / 407.5 500 / 500 310 / 310 Weight 56 kg 136.8 kg 59 kg Constitutional no acute distress Routine Respiratory Exam Present CTA bilaterally Routine Cardiovascular Exam Present RRR Routine Abdominal Exam Present soft Routine Extremities Exam Comments: right upper extremity covered with clean dressing. Routine Neurological Exam Present alert and oriented X3 Urinary Catheter Management Straight: Cath placed during this visit: no Results Labs CBC & Chem 7: 02/28/18 04:58 03/02/18 05:59 Labs: Microbiology 02/27/18 20:44 Catheterized Urine Urine Culture - Final No growth in 48 hours Assessment and Plan (1) UTI (urinary tract infection): Code(s): N39.0 - Urinary tract infection, site not specified Status: Acute (2) COPD (chronic obstructive pulmonary disease): Code(s): J44.9 - Chronic obstructive pulmonary disease, unspecified Status: Acute (3) Hypoxia: Code(s): R09.02 - Hypoxemia Status: Acute (4) Narcolepsy: Code(s): G47.419 - Narcolepsy without cataplexy Status: Acute (5) Wrist fracture, right: Code(s): S62.101A - Fracture of unspecified carpal bone, right wrist, initial encounter for closed fracture Status: Acute (6) Thrombocytopenia: Code(s): D69.6 - Thrombocytopenia, unspecified Status: Acute Plan UTI due to resistant pseudomonas requiring iv antibiotics - repeat cx are now negative and ok to stop abx per ID ACUTE EXACERBATION OF COPD - improved- patient is on home oxygen. CHRONIC HYPOXIC RESPIRATORY FAILURE - cont pulm tx, THROMBOCYTOPENIA/LEUKOPENIA - outpatient followup HEPATITIS C - will need outpatient followup with GI R WRIST FRACTURE w uncontrolled pain - prob pathologic component due to osteoporosis patient is on chronic prednisone, will need outpt follow up bone density start ca w vit d ANXIETY - on xanax GERD - on ppi dvt prophylaxis -scd Discharge Planning: dc home today. f/u; pcp. see med list. d/w the patient. E-Foanilace was reviewed before discharge. Progress Note: Quality VTE Deep Vein Thrombosis/Pulmonary Embolism Present on Admission: No _ (1) UTI (urinary tract infection) Qualifiers: Encounter type: Hematuria presence: Indwelling urinary catheter type: Urinary tract infection type: (2) Narcolepsy Qualifiers: Narcolepsy type: (3) Wrist fracture, right Qualifiers: Encounter type: Fracture healing: Fracture type: (4) COPD (chronic obstructive pulmonary disease) Qualifiers: COPD type: Chronic bronchitis type: Emphysema type:
--- NOTE | 2018-03-02 09:52 | P.DS ---
DS: Providers Date of admission: 02/27/18 22:27 Primary care physician: Phillip Wood DO Consults: 02/27/18 21:08 Consult to Infectious Diseases Routine Consulting Provider: Josep Mueller Reason for Consultation: Pseudomonas UTI CONSULT FOR AM Notified:: Service Spoke with:: chel Date Notified:: 02/27/18 Time Notified:: 23:51 Ordering Provider: ALMA 02/28/18 00:20 Consult to Orthopedic Surgery Routine Consulting Provider: Savannah Houston Preferred Electrical Engineering Professor:: Savannah Houston Patient known to:: Savannah Houston Reason for Consultation: Right Wrist Fx, scheduled for surgery on 03/01 CONSULT FOR AM Spoke with:: ADDING TO LIST courtesy call in AM Date Notified:: 02/28/18 Time Notified:: 02:19 Comments:: spoke to Selena in office @ 0820 hrs - ML Ordering Provider: ALMA Brief History from admission: This is a 62-year-old female with a PMH of Narcolepsy, Lymphoma, COPD, O2 Dependent, Urinary Retention, Tobacco Abuse and recent Right Wrist Fracture who was called to come back to the ER for urine culture results from previous ER presentation. Pt w/ h/o urinary retention, s/p Clark placement and eval w/ Dr. Birch in the past, seen in ER on 01/25/18, urine cultures +MRSA UTI at that time, later seen in ER on 02/13/18 for Right Wrist Fx after falling out of bed, had splint placed and was referred to Dr. Marin for surgical intervention which is scheduled for this coming Wednesday. Presented to ER on 02/23/18, diagnosed w/ UTI and d/c'd home on Clinda/Bactrim. Was called by us today and told to come in to ER for +Pseudomonas from urine cultures 02/24/18. Pt does c/ o ongoing dysuria. Friend at bedside notes pt w/ Narcolepsy-at baseline, does fall asleep during exam. On arrival, BP 110/55, HR 88, O2 sat 83% on RA, Afebrile. CBC essentially at baseline. INR 1.1. Chemistry unremarkable. UA with trace LE, mild bacteriuria. S/p Rocephin in ER. DS: Diagnosis Discharge Diagnosis (1) UTI (urinary tract infection): Status: Acute (2) COPD (chronic obstructive pulmonary disease): Status: Acute (3) Hypoxia: Status: Acute (4) Narcolepsy: Status: Acute (5) Wrist fracture, right: Status: Acute (6) Thrombocytopenia: Status: Acute DS: Summary UTI due to resistant pseudomonas requiring iv antibiotics - repeat cx are now negative and ok to stop abx per ID ACUTE EXACERBATION OF COPD - improved- CHRONIC HYPOXIC RESPIRATORY FAILURE - cont pulm tx, THROMBOCYTOPENIA/LEUKOPENIA - outpatient followup HEPATITIS C - will need outpatient followup with GI R WRIST FRACTURE w uncontrolled pain - prob pathologic component due to osteoporosis patient is on chronic prednisone, will need outpt follow up bone density start ca w vit d ANXIETY - on xanax GERD - on ppi Time Spent with Patient Total time spent providing and/or coordinating discharge services: Less than 30 minutes Quality: VTE Deep Vein Thrombosis/Pulmonary Embolism Present on Admission: No Exam Narrative Exam Narrative: in no acute distress.on lung exam bilateral air entry presenet- although diminished in bases- with no wheezing. abdomen is soft and no pedal edema. Results Procedures completed during hospitalization: none. Labs on day of discharge: Labs from last 24 hours 03/02/18 05:59 Creatinine 0.50 Estimated GFR Greater than 89 Impressions ITS Impressions Chest X-Ray 02/28/18 00:00 CONCLUSION: The lungs are clear. Discharge Plan Discharge Disposition Patient Disposition: 01 Discharge Home Discharge Condition Condition: Good Discharge Order Discharge Orders: Discharge Order (Routine); Ordered 03/02/18 Ordered By: Peña Anna Physicians Team Primary Care Provider: Phillip Wood Attending Provider: Peña Anna Other Providers: Josep Mueller ; Savannah Houston Rxs /Orders / Referrals /Forms Prescriptions: New oxycodone-acetaminophen [Endocet] 7.5-325 mg tablet 1 tab PO Q6H Qty: 10 RF: 0 Continue prednisone 20 mg Tablet 5 mg PO BID RF: 0 alprazolam [Xanax] 2 mg Tablet 2 mg PO BID RF: 0 albuterol sulfate [Ventolin HFA] 90 mcg/actuation Hfa Aerosol Inhaler 2 puff INHALATION Q4-6H PRN (Reason: Shortness Of Breath) RF: 0 [id number]-FA-vit K [Adults Multivitamin] 18 mg iron-400 mcg-25 mcg Tablet 1 mg PO DAILY RF: 0 omeprazole magnesium [Prilosec OTC] 20 mg Tablet,Delayed Release (Dr/Ec) 20 mg PO DAILY RF: 0 Discontinued clindamycin HCl 150 mg capsule 300 mg PO TID 10 Days Qty: 60 RF: 0 sulfamethoxazole-trimethoprim [Bactrim DS] 800-160 mg tablet 1 tab PO BID 10 Days Qty: 20 RF: 0 No Action oxycodone-acetaminophen 5-325 mg Tablet 1 tab PO Q6H PRN (Reason: Acute Pain) 7 Days Qty: 28 RF: 0 Referrals: Phillip Wood DO [Primary Care Provider] - See Instructions Discharge Instructions Patient Printed Instructions: Oxycodone/Acetaminophen (By mouth), Budesonide/ Formoterol (By breathing), Fall Prevention (DC) Post Discharge Care Plan Care Plan Goals: Discharge Care Plan Goals for COPD You have been diagnosed with chronic obstructive pulmonary disease (COPD). This is a name given to a group of diseases that limit the flow of air in and out of your lungs. This makes it harder to breathe. With COPD, you are also more likely to get lung infections. COPD includes chronic bronchitis and emphysema. COPD is most often caused by heavy, long-term cigarette smoking. Directions to Meet your Goals: 1. Quit smoking: * If you smoke, quit. It is the best thing you can do for your COPD and your overall health. * Join a stop-smoking program. There are even telephone, text message, and Internet programs to help you quit. * Ask your doctor about medicines or other methods to help you quit. * Ask family members to quit smoking as well. * Don't allow people to smoke in your home, in your car, or when they are around you. 2. Protect yourself from infection: * Wash your hands often. Do your best to keep your hands away from your face. Most germs are spread from your hands to your mouth. * Get a flu shot every year. Also ask your provider about pneumonia vaccines. * Avoid crowds. It's especially important to do this in the winter when more people have colds and flu. * To stay healthy, get enough sleep, exercise regularly, and eat a balanced diet. You should: -Get about 8 hours of sleep every night. -Try to exercise for at least 30 minutes on most days. -Have healthy foods including fruits and vegetables, 100% whole grains, lean meats and fish, and low-fat dairy products. -Try to stay away from foods high in fats and sugar. 3. Take your medicines: * Take your medicines exactly as directed. Don't skip doses. 4. Manage you stress: Stress can make COPD worse. Use this stress management technique: * Find a quiet place and sit or lie in a comfortable position. * Close your eyes and perform breathing exercises for several minutes. 5. Pulmonary rehabilitation: * Pulmonary rehab can help you feel better. These programs include exercise, breathing techniques, information about COPD, counseling, and help for smokers. * Ask your doctor or your local hospital about programs in your area. 6. When to call your doctor: Call doctor immediately if you have any of the following: Shortness of breath, wheezing, or coughing Increased mucus Yellow, green, bloody, or smelly mucus Fever or chills Tightness in your chest that does not go away with rest or medicine An irregular heartbeat or a feeling that your heart is beating very fast Swollen ankles 7. Follow-up: Do Not miss your follow-up appointment. Keep up with all your appointments and yearly check ups Status ED Status: Left Department Discharge Information Discharge Date/Time: 03/02/18 10:57
== END 2018-03-02 10:57 | disposition home or self-care (01) ==
LOC: NEPC 17:50 → NEDA 22:27 → NEPFCDU 02-28 00:05 → N04 03-01 13:26
PROVIDERS: ADMIT Internal Medicine; ATTEND Internal Medicine
DX: Z99.81 Dependence on supplemental oxygen; Z92.21 Personal history of antineoplastic chemotherapy; K21.9 Gastro-esophageal reflux disease without esophagitis; Z85.72 Personal history of non-Hodgkin lymphomas; D72.819 Decreased white blood cell count, unspecified; Z86.73 Personal history of transient ischemic attack (TIA), and cerebral infarction without residual deficits; S62.101A Fracture of unspecified carpal bone, right wrist, initial encounter for closed fracture; Z79.52 Long term (current) use of systemic steroids; F17.210 Nicotine dependence, cigarettes, uncomplicated; Z68.21 Body mass index [BMI] 21.0-21.9, adult; G47.419 Narcolepsy without cataplexy; J44.1 Chronic obstructive pulmonary disease with (acute) exacerbation; N39.0 Urinary tract infection, site not specified; J96.10 Chronic respiratory failure, unspecified whether with hypoxia or hypercapnia; Z16.23 Resistance to quinolones and fluoroquinolones; W06.XXXA Fall from bed, initial encounter; R21 Rash and other nonspecific skin eruption; R64 Cachexia; B19.20 Unspecified viral hepatitis C without hepatic coma; M81.0 Age-related osteoporosis without current pathological fracture; D69.6 Thrombocytopenia, unspecified; Z86.14 Personal history of Methicillin resistant Staphylococcus aureus infection; B96.5 Pseudomonas (aeruginosa) (mallei) (pseudomallei) as the cause of diseases classified elsewhere; F41.9 Anxiety disorder, unspecified